=== PATIENT | male | born 1980 | race Caucasian/White ===

== ENCOUNTER 2018-10-08 14:23 | Inpatient (IN) | payer OTHER ==
[~2018-10-08] VITALS: Ht 170.2 cm; Wt 76.7 kg
--- OUTSIDE RECORDS SUMMARY | 2018-10-08 14:28 | XMS REPORT ---
Author Author [facility] Medical Staff Organization [facility] Address [address] [place] [address] Phone [phone] Summary purpose TRANSITION OF CARE AUTO GENERATION Chief Complaint and Reason for Visit Admit Diagnosis 1 CELLULITIS OF ARM Problem list No authorized problems tracked for continuity of care are available for this vis it. Encounters The following conditions tracked for encounter diagnoses were recorded for this visit: Finding or Diagnosis Status Certainty Chronicity Onset *CELLULITIS Active *LEUKOCYTOSIS Active Medications Discharge Medications Status Medication Directions Current Acetaminophen (TYLENOL) 325 mg: TABLET 650 MG oral Give PO Q4 Hours As Needed for PAIN/FEVER Current Bactrim DS 800 mg-160 mg tablet 1 tab oral 3 xDaily 12-28-20 Current Clonazepam (KLONOPIN) 0.5 mg: TABLET 1 tab(s) oral Twice a day as needed for ANXIETY Current Cyclobenzaprine (FLEXERIL): TABLET 10 MG oral Give PO 3 xDaily As Needed for MUSCLE SPASM Current doxycycline hyclate 100 mg tablet 1 tab oral Twice a day Current IBUPROFEN 800 mg: TABLET 800 MG oral Give PO Q8 Hours As Needed for PAIN/FEVER Current Levetiracetam (KEPPRA): TABLET 1000 MG oral Give PO Twice a day Current Percocet 10 mg-325 mg tablet 1 tab oral Q4 Hours As Needed for Pain Stopped Flexeril 10 mg tablet 1 tab(s) oral 3 xDaily As Needed Stopped hydrocodone 10 mg-acetaminophen 325 mg tablet 1 tab(s) oral Q6 Hours As Needed Stopped Keppra 1,000 mg tablet 2.5 tab(s) oral Twice a day Stopped Klonopin 2 mg tablet 1 tab(s) oral 3 xDaily 12-28-20 Allergies, adverse reactions, alerts Allergen Category Ingredient Status Reaction Severity Onset No known drug allergies No known drug allergies No known drug allergies Confirmed or Verified Immunizations No immunizations recorded for this patient visit Relevant diagnostic tests and/or laboratory data RESULTS [id number]:24:00 Discharge Summary DISCHARGE SUMMARY DISCHARGE DIAGNOSES: 1. Right upper extremity cellulitis with suspected methicillin-resistant Staphylococcus aureus. 2. Possible bacteremia with gram-positive cocci on 1 blood culture. 3. Leukocytosis. 4. Seizure disorder. CONSULTATIONS: None. PROCEDURES: None. HISTORY OF PRESENT ILLNESS:This is a 33-year-old white male patient of Cally Forbes who presented to the emergency room with right arm infection of 5 days' duration. Symptoms had significantly increased in the day or 2 prior. In addition, he developed fever. The patient underwent incision and drainage in the emergency room. He was subsequently admitted and placed on intravenousvancomycin. Patient's fever subsided to low grade temperatures only at time of discharge. Pain significantly improved. Drainage subsided quite a bit as well. No wound cultures available at the time of discharge. However, he did have 1 of 2 blood cultures return with gram-positive cocci. The patient has been up ambulating about the room and taking a regular diet without any difficulties. PHYSICAL EXAMINATION:GENERAL:The patient is in no acute distress, alert, and oriented and conversing freely. VITAL SIGNS:Temperature 100.1, pulse 98, blood pressure 107/65, respirations 20, oxygen saturation 100%.EXTREMITIES:Right upper extremity significant decrease in erythema with a central area of erythema and induration measuring approximately 3 to 4 cm in diameter. Minimal drainage from central site. LABORATORY/X-RAY/EKG DATA: Laboratory on discharge shows CBC with white blood cells 14.5 from a previous of 30,000, hemoglobin 10.9, platelets 234,000. BMP is within normal limits, with a BUN of 11 and creatinine of 0.85. DISCHARGE INSTRUCTIONS: DISPOSITION: The patient discharged in stable condition without diet or activity restrictions. He is to follow up with Cally Gordillo in 1 week. DISCHARGE MEDICATIONS:Bactrim DS twice 3 times daily for 7 days. Doxycycline twice daily for 100 mg twice daily for 7 days. Percocet 10 mg every 4 hours as needed for pain, quantity 40. Keppra 1000 mg twice daily. Clonazepam 0.5 mg twice daily as needed for anxiety. Brian Taylor MD MD/cc 09/04/2014 08:24:06/09/04/2014 22:39:43 Clinic Code: cc: <START [facility] [address] [place] [address] <END HEADER> Blood Cultures [id number]:10:00 Blood Culture Plate Date and Time 09/02/2014 17:10 SourceBLOOD CULTURE REPORT VIRIDANS STREP.ISOLATED. Sensitivity to follow Release Date/Time: 09/05/2014 07:52 GRAM STAIN Gram Positive Cocci Release Date/Time: 09/03/2014 19:21 ORGID #2:STREPTOCOCCUS VIRIDANS, GROUP Release Date/Time: 09/06/2014 07:24 Sensitivity #2: STRVIR AMPICILLIN 0.25S AZITHROMYCIN 1 I CEFTRIAXONE<=0.25 S CLINDAMYCIN<=0.06 S CEFOTAXIME <=0.25 S CEFEPIME <=0.25 S ERYTHROMYCIN > 0.5 R LEVOFLOXACIN 0.5 S MEROPENEM<=0.06 S PENICILLIN 0.06S TRIMETHSULFA 05/04 TETRACYCLINE <=0.5S VANCOMYCIN 0.5 S [id number]:20:00 Blood Culture Plate Date and Time 09/02/2014 16:22 SourceBLOOD CULTURE REPORT NoGrowth at 1 day. Unless otherwise notified. Final report in 5 Days. Release Date/Time: 09/04/2014 07:59 CULTURE REPORT VIRIDANS STREP.GROUP ISOLATED. SEE SENSITIVITY RESULT ON THE OTHER BLOOD CULTURE REPORT. Release Date/Time: 09/06/2014 07:30 GRAM STAIN Gram Positive Cocci Release Date/Time: 09/04/2014 13:14 ORGID #1:VIRIDANS STREPTOCOCCUS GROUP Release Date/Time: 09/06/2014 07:33 ISOLATED.SEE SUSCEPTIBILITY RESULT ON THE OTHER BLOOD CULTURE REPORT. Therapeutic Drug Monitoring [id number]:35:00 Result Normal Range Units Vancomycin Trough 12.4 10-22 ug/ml Routine Cultures [id number]:32:00 Wound Culture Plate Date and Time 09/02/2014 23:32 SourceFOREARM CULTURE REPORT Large Amount Staphylococcus Aureus. Sensitivity to follow Release Date/Time: 09/04/2014 08:29 ORGID #1:Large Amount STAPHYLOCOCCUS AUREUS Release Date/Time: 09/05/2014 07:21 Sensitivity #1: STAAUR AMPICILLIN > 8 R AMOX CLAV<=4/2 S CLINDAMYCIN<=0.5S CEFAZOLIN<=4S CIPROFLOXACIN<=1S GENTAMICIN <=4S AMPICILLIN SULBACTAM <=8/4 S LEVOFLOXACIN <=1S LINEZOLID4 S MOXIFLOXACIN <=0.5S OXACILLIN0.5 S PENICILLIN > 8 R RIFAMPIN <=1S TRIMETHSULFA <=0.5/9.5 S TETRACYCLINE <=4S VANCOMYCIN 2 S Chemistry :18:00 Result Normal Range Units Sodium 140 134-145 mEq/l Potassium 4.4 3.5-5.1 mEq/l Chloride 104 98-107 mEq/l CO2 26.4 22-28 mEq/l Glucose 86 70-105 mg/dl BUN 11 7-18 mg/dl Creatinine 0.85 0.6-1.3 mg/dl Calcium 8.4 8.4-10.2 mg/dl Osmolality L 278.1 280-300 mOsm/L Anion GAP 9.6 8-16 BUN/Creatinine Ratio 12.9 10-20 Estimated GFR 103 >=60 mL/min/1.7 [id number]:40:00 Result Normal Range Units Sodium 138 134-145 mEq/l Potassium 4.7 3.5-5.1 mEq/l Chloride 102 98-107 mEq/l CO2 H 29.8 22-28 mEq/l Glucose 96 70-105 mg/dl BUN 10 7-18 mg/dl Creatinine 0.85 0.6-1.3 mg/dl Calcium 8.6 8.4-10.2 mg/dl Osmolality L 274.6 280-300 mOsm/L Anion GAP L 6.2 8-16 BUN/Creatinine Ratio 11.8 10-20 Estimated GFR 103 >=60 mL/min/1.7 :20:00 Result Normal Range Units Sodium 138 134-145 mEq/l Potassium 4.2 3.5-5.1 mEq/l Chloride 99 98-107 mEq/l CO2 27.1 22-28 mEq/l Glucose L 58 70-105 mg/dl BUN 11 7-18 mg/dl Creatinine 1.02 0.6-1.3 mg/dl Calcium 9.1 8.4-10.2 mg/dl TP - Total Protein 8.1 6.0-8.3 g/dl Albumin L 3.2 3.5-5 g/dl Bilirubin - Total 0.4 0.1-1.0 mg/dl AST L 9 10-42 IU/L ALT 19 12-65 IU/L ALP H 144 39-107 IU/L Osmolality L 272.8 280-300 mOsm/L Albumin/Globulin Ratio 0.7 0-8 Anion GAP 11.9 8-16 BUN/Creatinine Ratio 10.8 10-20 Estimated GFR 83 >=60 mL/min/1.7 Hematology :18:00 Result Normal Range Units WBC H 14.5 4.8-10.8 103/uL RBC L 4.1 4.7-6.1 106/uL HGB L 10.9 13.0-18.0 g/dl HCT L 34.6 41.9-52.0 % MCV 83.8 80-94 FL MCH L 26.4 27-31 pg MCHC L 31.5 33-37 g/dl RDW 14.9 11.5-15.5 % PLT 234 130-400 103/uL MPV 10.4 7.3-10.4 FL Segs H 77.0 40-70 % Lymphs L 15.0 20-40 % [place] 5.0 0-10 % Eos 2.0 0-7 % Baso 1.0 0-2 % :40:00 Result Normal Range Units WBC H@ 30.2 4.8-10.8 103/uL RBC L 4.4 4.7-6.1 106/uL HGB L 11.7 13.0-18.0 g/dl HCT L 36.1 41.9-52.0 % MCV 81.5 80-94 FL MCH L 26.4 27-31 pg MCHC L 32.4 33-37 g/dl RDW 15.1 11.5-15.5 % PLT 231 130-400 103/uL MPV 10.1 7.3-10.4 FL Segs H 75.0 40-70 % Bands H 9.0 0-5 % Lymphs L 6.0 20-40 % [place] 8.0 0-10 % Eos 1.0 0-7 % [place] 1.0 0-5 % :20:00 Result Normal Range Units WBC H 19.8 4.8-10.8 103/uL RBC 4.9 4.7-6.1 106/uL HGB 13.2 13.0-18.0 g/dl HCT L 40.2 41.9-52.0 % MCV 81.5 80-94 FL MCH L 26.8 27-31 pg MCHC L 32.8 33-37 g/dl RDW 15.3 11.5-15.5 % PLT 310 130-400 103/uL MPV 10.1 7.3-10.4 FL Segs H 82.0 40-70 % Bands H 13.0 0-5 % Lymphs L 2.0 20-40 % [place] 2.0 0-10 % Eos 1.0 0-7 % Radiology Results :18:00 Result Normal Range Units MPV 10.4 7.3-10.4 FL :40:00 Result Normal Range Units MPV 10.1 7.3-10.4 FL :20:00 Result Normal Range Units MPV 10.1 7.3-10.4 FL History of procedures No procedures recorded for this patient visit. Functional status Functional Status Finding Observation Time Hearing Prob Loc none :00 Vision Problems no :00 Ambulation Asst Dev none :00 Range of Motion full 85-62-507426:11 Muscle Strength RUE 5 ROM full resist 29-26-149139:11 Muscle Strength RLE 5 ROM full resist 85-42-790308:11 Muscle Strength LUE 5 ROM full resist 73-66-030736:11 Muscle Strength LLE 5 ROM full resist 02-54-476926:11 Transfers independent 15-94-785308:11 Ambulation in room 44-98-959692:11 Balance steady 89-19-934891:11 Bathing Assistance none :00 Eating Assistance none :00 Dressing Assistance none :00 Toileting Assistance none :00 Transfer Assistance none :00 Decline Slf Care/Mob no :00 Phys Cond Stable yes :00 Nutrition normal 95-08-801243:11 Diet regular 91-92-233906:11 Oral Cavity moist and intact 00-86-256348:11 Teeth intact 80-37-397105:11 Dental Hygiene good :11 Abdomen Appearance flat 86-20-357707:11 Abdomen soft :11 Bowel Sounds present :11 NG Tube no :11 Feeding Tube none :11 Pacheco no :11 Cont Bladder Irr no :11 Ostomy no :11 Stool other (specify) Comment: None noted at thist ld 52-81-639129:11 Urination normal Comment: Per patient report :11 Quality sym/unlabored : Cough non-productive :11 Secretions no :11 Breath Sounds RUL clear :11 Breath Sounds RML clear :11 Breath Sounds RLL clear :11 Breath Sounds LAZARO clear :11 Breath Sounds LLL clear 57-75-525112:11 Airway natural :11 Chest Tube no :11 Oxygen no :58 C-PAP no 03-94-992820:11 BI-PAP no :11 New Infection other (specify) Comment: Cellulitis : Temp >100.4 no :11 Temp <96.8 no :11 Chills with rigors no :11 HR > 90bpm no :11 Respirations > 20 no :11 Systolic <90 no :11 headache stiff neck no :11 WBC > 02177 yes Comment: 14.5 :11 WBC < 4000 no :11 Rapid Resp no :11 IV Site Location Left forearm :00 IV Type peripheral :00 IV Site Information discontinued :00 IV Site Start Attmpt 2 times 72-65-292254:30 IV Site Byron 20 :13 IV Site Appearance WNL :13 IV Site Color clear :13 IV Site Patent yes :13 Dressing Changed no (explain) Comment: dressing remains clean, dry and itnact at this time :13 Dressing Type occlusive :13 Nursing Note Pt reports he is not taking his antibiotics as well as he should be, he reports today has been hectic and he missed some, I educated him on the importance of taking his antibiotics as ordered to ensure he does not end up back in the hospital. Pt verbalizes understanding and reports that he will take them as ordered. Pt has a f/u on 09/10/14 @ [address] Taylor that he reports he was not aware of. No questions at this time. :34 Cognitive Status Finding Observation Time Oriented To Date 5 Yes : Oriented To Place 5 Yes : Name 3 Objects 3 Yes : Name Object in Rm 2 Yes : Recall 3 Objects 3 Yes :00 Repeats a Phrase 1 Yes :00 Follows Verbal Direc 3 Yes :00 Follows Written Dire 1 Yes :00 Write a Sentance 1 Yes : Draw an Object 1 Yes :00 Mini Mental Total 25 points :00 Learning Ability comprehends well :10 Neurological no :10 Psychological yes :10 Physical no :10 Hearing no :10 Ruling Technician Needed no :10 Sign Language no :10 Emotional no :10 Vision no :10 Laguage no :10 Financial yes :10 Vital signs Type Value Date Respiration Rate 20breaths per minute :58 Pulse 91beats per minute :58 Oxygen Saturation 98% :58 BP Systolic 104mmHg 64-22-162190:58 BP Diastolic 63mmHg 78-36-864452:58 Temperature 99.2F 05-62-697244:58 Height 68inches 21-26-346395:26 Weight 166.2LB 35-81-680315:26 Social history Type Value Smoking Status CURRENT EVERY DAY SMOKER Treatment Plan No treatment plan text is available for this visit. Hospital discharge instructions Discharge Date/Time 09-04-2014 12:05 Accompanied By Care Car/Self Dismissal Condition fair Disposition on DC home Valuables yes Valuable Type billfold/purse Comment: cell phone, clothing and shoes from home Valuables Returned T patient DC Inst/Educ Give yes Exit Care Educ Given yes Med/Side Effects Rev yes DC Med Rec Rev yes Immun Indicated no PNE Vac Refused Flu Vac 2013 Tetanus Vac unsure Diet Explained yes Follow up appt already scheduled Follow Up Appt D/T 09-10-2014 11:20
--- OUTSIDE RECORDS SUMMARY | 2018-10-08 14:29 | XMS REPORT ---
Author Author TRINIDAD CAMARENA Organization Unknown Address [address] [place] [address] [address] [place] [address] Care Team Providers Care Director Digital Sales Name Role Phone TRINIDAD CAMARENA Unavailable Problems Problem SNOMED Onset Date Resolved Date Status N/A N/A N/A N/A N/A Allergies, Adverse Reactions NA Care Plan Date Time Service Provider Location 09:00:00 am PSYCHOTHERAPY, 38-52 MINUTES BEN ALEGRIA [address] 08:30:00 am NEW PATIENT E&M LEVEL III CALLI PATRICK [address] Medications NA Lab Results NA Encounters Date Time Service Code Provider 12:04:00 pm TRINIDAD CAMARENA Family History Functional Status NA Immunizations NA Vital Signs NA Social History NA Hospital Discharge Instructions NA Instructions * Not Applicable Procedures NA Purpose Electronic Copy
--- OUTSIDE RECORDS SUMMARY | 2018-10-08 14:29 | XMS REPORT | Clinical Summary ---
Author Author Admin, CHRISTENE Organization [facility] Address Unknown Phone Unavailable Allergies, Adverse Reactions, Alerts Allergy Name Reaction Description Start Date Severity Status Provider Allergies Unknown Conditions or Problems Problem Name Problem Code Onset Date Status Entry Date Provider Comment Standard Description Annotate Health screening V70.0 Active Brian Taylor MD Routine general medical examination at a health care facility Medication List Medication Instructions Start Date Stop Date Generic Name NDC Status Provider Patient Instruction Drug Treatment Unknown - unknown Diagnostic Results Date Name Value Unit Range Description Chart Maintenance: Outside labs entered on flowsheet - Chemistry sodium, serum 140 mmol/L potassium, serum 4.4 mmol/L blood glucose 86 mg/dL creatinine, serum 0.85 mg/dL Chart Maintenance: Outside labs entered on flowsheet - Hematology leukocyte count, blood 14.5 10*3/mm3 hemoglobin, blood 10.9 g/dL platelet count 234 10*3/mm3
--- OUTSIDE RECORDS SUMMARY | 2018-10-08 14:29 | XMS REPORT ---
Author Author [facility] Medical Staff Organization [facility] Address [address] [place] [id number] Phone [phone] Summary purpose TRANSITION OF CARE AUTO GENERATION Chief Complaint and Reason for Visit Admit Diagnosis 1 RT UPPER EXTREMITY CELLULITIS Problem list No authorized problems tracked for [...] Relevant diagnostic tests and/or laboratory data RESULTS 26-01-784491:24:00 Discharge Summary DISCHARGE SUMMARY DISCHARGE DIAGNOSES: 1. [...] as needed for anxiety. Brian Taylor MD MD/brittani 09/04/2014 08:24:06/09/04/2014 22:39:43 Clinic Code: cc: <START [facility] [address] [facility] [address] <END HEADER> Blood Cultures 31-00-674777:10:00 Blood Culture Plate Date and Time 09/02/2014 17:10 SourceBLOOD GRAM STAIN Gram Positive Cocci Release Date/Time: 09/03/2014 19:21 [id number]:20:00 Blood Culture Plate Date and Time 09/02/2014 16:22 SourceBLOOD CULTURE REPORT NoGrowth at 1 day. Unless otherwise notified. Final report in 5 Days. Release Date/Time: 09/04/2014 07:59 GRAM STAIN Gram Positive Cocci Release Date/Time: 09/04/2014 13:14 Therapeutic Drug Monitoring 26-00-527279:35:00 Result Normal Range Units Vancomycin Trough 12.4 10-22 ug/ml Routine Cultures [id number]:32:00 Wound Culture Plate Date and Time 09/02/2014 23:32 SourceFOREARM CULTURE REPORT Large Amount Staphylococcus Aureus. Sensitivity to follow Release Date/Time: 09/04/2014 08:29 Chemistry [id number]:18:00 Result Normal Range Units Sodium 140 134-145 mEq/l Potassium 4.4 3.5-5.1 mEq/l Chloride 104 98-107 mEq/l CO2 26.4 22-28 mEq/l Glucose 86 70-105 mg/dl BUN 11 7-18 mg/dl Creatinine 0.85 0.6-1.3 mg/dl Calcium 8.4 8.4-10.2 mg/dl Osmolality L 278.1 280-300 mOsm/L Anion GAP 9.6 8-16 BUN/Creatinine Ratio 12.9 10-20 Estimated GFR 103 >=60 mL/min/1.7 03-49-023433:40:00 Result Normal Range Units Sodium 138 134-145 mEq/l Potassium 4.7 3.5-5.1 mEq/l Chloride 102 98-107 mEq/l CO2 H 29.8 22-28 mEq/l Glucose 96 70-105 mg/dl BUN 10 7-18 mg/dl Creatinine 0.85 0.6-1.3 mg/dl Calcium 8.6 8.4-10.2 mg/dl Osmolality L 274.6 280-300 mOsm/L Anion GAP L 6.2 8-16 BUN/Creatinine Ratio 11.8 10-20 Estimated GFR 103 >=60 mL/min/1.7 84-05-220004:20:00 Result Normal Range Units Sodium 138 134-145 [...] 40-70 % Lymphs L 15.0 20-40 % [place] 5.0 0-10 % Eos 2.0 0-7 % [...] 0-5 % Lymphs L 6.0 20-40 % [place] 8.0 0-10 % Eos 1.0 0-7 % [...] 0-5 % Lymphs L 2.0 20-40 % [place] 2.0 0-10 % Eos 1.0 0-7 % [...] Dev none :00 Range of Motion full :11 Muscle Strength RUE 5 ROM full resist 14-57-843475:11 Muscle Strength RLE 5 ROM full resist 45-16-291387:11 Muscle Strength LUE 5 ROM full resist 35-09-664313:11 Muscle Strength LLE 5 ROM full resist 71-89-322417:11 Transfers independent :11 Ambulation in room :11 Balance steady 99-58-900153:11 Bathing Assistance none :00 Eating Assistance none : Dressing Assistance none : Toileting Assistance none :00 Transfer Assistance none : Decline Slf Care/Mob no :00 Phys Cond Stable yes : Nutrition normal :11 Diet regular :11 Oral Cavity moist and intact :11 Teeth intact :11 Dental Hygiene good :11 Abdomen Appearance flat :11 Abdomen soft :11 Bowel Sounds present :11 NG Tube no :11 Feeding Tube none :11 Pacheco no :11 Cont Bladder Irr no :11 Ostomy no :11 Stool other (specify) Comment: None noted at thist ld 40-24-246721:11 Urination normal Comment: Per patient report :11 Quality sym/unlabored :11 Cough non-productive :11 Secretions no :11 Breath Sounds RUL clear :11 Breath Sounds RML clear :11 Breath Sounds RLL clear :11 Breath Sounds LAZARO clear :11 Breath Sounds LLL clear :11 Airway natural :11 Chest Tube no :11 Oxygen no 37-75-153567:58 C-PAP no :11 BI-PAP no :11 New Infection other (specify) Comment: Cellulitis :11 Temp >100.4 no :11 Temp <96.8 no :11 Chills with rigors no 64-12-690152:11 HR > 90bpm no :11 Respirations > 20 no :11 Systolic <90 no :11 headache stiff neck no :11 WBC > 25005 yes Comment: 14.5 :11 WBC < 4000 no :11 Rapid Resp no :11 IV Site Location Left forearm :00 IV Type peripheral :00 IV Site Information discontinued : IV Site Start Attmpt 2 times 62-49-801134:30 IV Site Byron 20 :13 IV Site Appearance WNL : IV Site Color clear : IV Site Patent yes : Dressing Changed no (explain) Comment: dressing remains clean, dry and itnact at this time : Dressing Type occlusive :13 Nursing Note Patient discharged to home at this time. The patient is receiving a ride from the Care power truck driver but refused to wait in his room. The patient insisted on waiting outside near the ER doors. JR, the care carpenter foreman, was informed of this. The patient's vital signs were stable on discharge and his IV Site was removed. He denied further questions or concerns regarding his discharge instructions and home medications. :09 Cognitive Status Finding Observation Time Oriented To Date 5 Yes : Oriented To Place 5 Yes : Name 3 Objects 3 Yes :00 Name Object in Rm 2 Yes : Recall 3 Objects 3 Yes :00 Repeats a Phrase 1 Yes : Follows Verbal Direc 3 Yes : Follows Written Dire 1 Yes : Write a Sentance 1 Yes : Draw an Object 1 Yes :00 Mini Mental Total 25 points : Learning Ability comprehends well :10 Neurological no 75-20-307299:10 Psychological yes :10 Physical no :10 Hearing no :10 Marketing Assistant Retail Division Needed no :10 Sign Language no :10 Emotional no :10 Vision no :10 Laguage no :10 Financial yes :10 Vital signs Type Value Date Respiration Rate 20breaths per minute : Pulse 91beats per minute :58 Oxygen Saturation 98% :58 BP Systolic 104mmHg :58 BP Diastolic 63mmHg :58 Temperature 99.2F :58 Height 68inches :26 Weight 166.2LB 94-80-341440:26 Social history Type Value Smoking Status CURRENT [...]
--- OUTSIDE RECORDS SUMMARY | 2018-10-08 14:29 | XMS REPORT ---
Author Author BEN ALEGRIA Organization Unknown Address [address] [place] [address] Care Team Providers Care Dermatology Specialist Name Role Phone TRINIDAD CAMARENA Unavailable BEN ALEGRIA Unavailable Problems Problem SNOMED Onset Date Resolved Date Status Mental health problem [id number] Active Review of medication [id number] Active Allergies, Adverse Reactions NA Care Plan Goal Instructions Client will be functioning more independently with supports and have a life worth living. Engage with treatment team to build rapport. Learn and practice coping skills to reduce symptoms and improve functioning. The following Services will be utilized 1 - 3 times until goal is reached: Improve and maintain functioning through medical psychiatric services. ADULT THERAPY SERVICE BUNDLE - Provide the following services 1-3 times each week: + 83057 Psychotherapy, 16-37 Minutes + 97715 Psychotherapy, 38-52 Minutes + 17758 Psychotherapy, 53+ Minutes + 77104 Psychotherapy for Crisis 31-74 Minutes + 36306 Each Add'l 30 Min Crisis Psychotherapy + 43066 Group Therapy + 79909 Case Conf w/Clt NN-Physician + [id number] Case Conf w/o Clt + Fam w/MD + [id number] Case Conf w/o Clt w/MD Improve and maintain functioning through medical psychiatric services. ADULT THERAPY SERVICE BUNDLE - Provide the following services 1-3 times each week: + 06953 Psychotherapy, 16-37 Minutes + 83250 Psychotherapy, 38-52 Minutes + 36343 Psychotherapy, 53+ Minutes + 07434 Psychotherapy for Crisis 31-74 Minutes + 04185 Each Add'l 30 Min Crisis Psychotherapy + 29858 Group Therapy + 00907 Case Conf w/Clt NN-Physician + 03822 Case Conf w/o Clt + Fam w/MD + 57734 Case Conf w/o Clt w/MD + [id number] Psychosocial Adult Group + [id number] TCM - Targeted Case Management Medications NA Lab Results NA Encounters Date Time Service Code Provider 12:04:00 pm BEN ALEGRIA 03:56:00 pm BEN ALEGRIA Family History Functional Status NA Immunizations NA Vital Signs NA Social History NA Hospital Discharge Instructions NA Instructions * Not Applicable Procedures NA Purpose Electronic Copy
--- OUTSIDE RECORDS SUMMARY | 2018-10-08 14:29 | XMS REPORT | Continuity of Care Document ---
Author Organization Unknown Address Unknown Allergies Active Description Code Type Severity Reaction Onset Reported/Identified Relationship to Patient Clinical Status Yes No known allergies Drug N/A N/A Yes No known drug allergies [id number] ND N/A N/A Confirmed or Verified Yes Tylenol with Codeine #3 Drug N/A N/A Yes NO NAME AVAILABLE 01723 DRUG N/A N/A Medications There is no data. Problems There is no data. Procedures There is no data. Results Test Result Range CBC WITH DIFF - 08/18/13 00:00 BANDS 7.0 % 0-5 HCT 34.8 % 41.9-52.0 HGB 11.7 G/DL 13.0-18.0 LYMPH 6.0 % 20-40 MCH 26.1 PG 27-31 MCHC 33.6 G/DL 33-37 MCV 77.5 FL 80-94 MONO 8.0 % 0-10 MPV 11.0 FL 7.3-10.4 PLT 212 10^3u 130-400 RBC 4.5 10^6u 4.7-6.1 RDW 15.5 % 11.5-15.5 WBC 12.3 10^3u 4.8-10.8 SEGS 79.0 % 40-70 CMP - 08/18/13 00:00 ALB 3.2 G/DL 3.5-5 ALP 227 IU/L 50-136 ALT 25 IU/L 12-65 AST 14 IU/L 10-42 BCR 12.4 10-20 BUN 13 MG/DL 7-18 CA 8.9 MG/DL 8.4-10.2 CL 93 MEQ/L 98-107 CO2 22.9 MEQ/L 22-28 CREA 1.05 MG/DL 0.6-1.3 EGFR 81 eGFR >=60 GLU 106 MG/DL 70-105 K 3.7 MEQ/L 3.5-5.1 NA 129 MEQ/L 134-145 OSMSC 259.5 MOSML 280-300 TBIL 0.5 MG/DL 0.1-1.0 TP 7.6 G/DL 6.0-8.3 Albumin/Globulin Ratio 0.7 0-8 Anion Gap 13.1 8-16 RAPID MYCOPLASMA - 08/18/13 00:00 RAPMYCO N Negative LACTIC ACID - 08/18/13 00:00 LA 1.2 MMOLL 0.4-2.0 UA - 08/19/13 00:00 PH 5.5 4.5-8.0 SG 1.007 1.003-1.035 UABILI NEGATIVE UABLD NEGATIVE UACOLOR YEL UAGLU NEGATIVE UAKET NEGATIVE UALEUK NEGATIVE UANIT NEGATIVE UAURO 0.2 0-0.2 CLARITY CL PROTEIN NEGATIVE UA WBC NOWBC UA RBC NORBC SQUAMOUS EPITHELIAL CELLS FEW BACTERIA RARE CMP - 08/19/13 00:00 ALB 2.6 G/DL 3.5-5 ALP 263 IU/L 50-136 ALT 24 IU/L 12-65 AST 23 IU/L 10-42 BCR 13.4 10-20 BUN 15 MG/DL 7-18 CA 8.5 MG/DL 8.4-10.2 CL 95 MEQ/L 98-107 CO2 24.8 MEQ/L 22-28 CREA 1.12 MG/DL 0.6-1.3 EGFR 75 eGFR >=60 GLU 113 MG/DL 70-105 K 3.8 MEQ/L 3.5-5.1 NA 130 MEQ/L 134-145 OSMSC 262.4 MOSML 280-300 TBIL 0.5 MG/DL 0.1-1.0 TP 6.3 G/DL 6.0-8.3 Albumin/Globulin Ratio 0.7 0-8 Anion Gap 10.2 8-16 CBC WITH DIFF - 08/19/13 00:00 BANDS 2.0 % 0-5 HCT 30.5 % 41.9-52.0 HGB 10.4 G/DL 13.0-18.0 LYMPH 4.0 % 20-40 MCH 26.7 PG 27-31 MCHC 34.1 G/DL 33-37 MCV 78.4 FL 80-94 MONO 6.0 % 0-10 MPV 11.1 FL 7.3-10.4 PLT 199 10^3u 130-400 RBC 3.9 10^6u 4.7-6.1 RDW 15.6 % 11.5-15.5 WBC 15.2 10^3u 4.8-10.8 SEGS 88.0 % 40-70 CMP - 08/20/13 00:00 ALB 2.1 G/DL 3.5-5 ALP 337 IU/L 50-136 ALT 22 IU/L 12-65 AST 16 IU/L 10-42 BCR 12.6 10-20 BUN 11 MG/DL 7-18 CA 8.5 MG/DL 8.4-10.2 CL 102 MEQ/L 98-107 CO2 22.9 MEQ/L 22-28 CREA 0.87 MG/DL 0.6-1.3 EGFR 100 eGFR >=60 GLU 120 MG/DL 70-105 K 3.7 MEQ/L 3.5-5.1 NA 135 MEQ/L 134-145 OSMSC 270.7 MOSML 280-300 TBIL 0.5 MG/DL 0.1-1.0 TP 5.7 G/DL 6.0-8.3 Albumin/Globulin Ratio 0.6 0-8 Anion Gap 10.1 8-16 CBC WITH DIFF - 08/20/13 00:00 BANDS 1.0 % 0-5 BASO 1.0 % 0-2 HCT 30.8 % 41.9-52.0 HGB 10.2 G/DL 13.0-18.0 LYMPH 7.0 % 20-40 MCH 26.1 PG 27-31 MCHC 33.1 G/DL 33-37 MCV 78.8 FL 80-94 MONO 8.0 % 0-10 MPV 10.4 FL 7.3-10.4 PLT 183 10^3u 130-400 RBC 3.9 10^6u 4.7-6.1 RDW 16.0 % 11.5-15.5 WBC 13.4 10^3u 4.8-10.8 SEGS 83.0 % 40-70 CMP - 08/22/13 00:00 ALB 1.8 G/DL 3.5-5 ALP 318 IU/L 50-136 ALT 25 IU/L 12-65 AST 17 IU/L 10-42 BCR 10.0 10-20 BUN 9 MG/DL 7-18 CA 8.2 MG/DL 8.4-10.2 CL 104 MEQ/L 98-107 CO2 26.2 MEQ/L 22-28 CREA 0.90 MG/DL 0.6-1.3 EGFR 97 eGFR >=60 GLU 148 MG/DL 70-105 K 3.8 MEQ/L 3.5-5.1 NA 139 MEQ/L 134-145 OSMSC 279.0 MOSML 280-300 TBIL 0.2 MG/DL 0.1-1.0 TP 5.5 G/DL 6.0-8.3 Albumin/Globulin Ratio 0.5 0-8 Anion Gap 8.8 8-16 CBC WITH DIFF - 08/24/13 00:00 EOS 1.0 % 0-7 HCT 29.1 % 41.9-52.0 HGB 9.3 G/DL 13.0-18.0 LYMPH 23.0 % 20-40 MCH 26.2 PG 27-31 MCHC 32.0 G/DL 33-37 MCV 82.0 FL 80-94 MONO 18.0 % 0-10 MPV 9.9 FL 7.3-10.4 PLT 288 10^3u 130-400 RBC 3.6 10^6u 4.7-6.1 RDW 17.4 % 11.5-15.5 WBC 16.1 10^3u 4.8-10.8 SEGS 58.0 % 40-70 CMP - 08/24/13 00:00 ALB 1.9 G/DL 3.5-5 ALP 274 IU/L 50-136 ALT 41 IU/L 12-65 AST 20 IU/L 10-42 BCR 17.5 10-20 BUN 17 MG/DL 7-18 CA 8.7 MG/DL 8.4-10.2 CL 108 MEQ/L 98-107 CO2 28.1 MEQ/L 22-28 CREA 0.97 MG/DL 0.6-1.3 EGFR 89 eGFR >=60 GLU 94 MG/DL 70-105 K 4.7 MEQ/L 3.5-5.1 NA 144 MEQ/L 134-145 OSMSC 288.1 MOSML 280-300 TBIL 0.2 MG/DL 0.1-1.0 TP 5.5 G/DL 6.0-8.3 Albumin/Globulin Ratio 0.5 0-8 Anion Gap 7.9 8-16 CBC - 08/25/13 00:00 HCT 30.5 % 41.9-52.0 HGB 9.7 G/DL 13.0-18.0 MCH 26.2 PG 27-31 MCHC 31.8 G/DL 33-37 MCV 82.4 FL 80-94 MPV 10.0 FL 7.3-10.4 PLT 344 10^3u 130-400 RBC 3.7 10^6u 4.7-6.1 RDW 17.0 % 11.5-15.5 WBC 16.7 10^3u 4.8-10.8 BMP - 08/25/13 00:00 BCR 16.0 10-20 BUN 16 MG/DL 7-18 CA 8.7 MG/DL 8.4-10.2 CL 106 MEQ/L 98-107 CO2 31.5 MEQ/L 22-28 CREA 1.00 MG/DL 0.6-1.3 EGFR 86 eGFR >=60 GLU 87 MG/DL 70-105 K 4.6 MEQ/L 3.5-5.1 NA 145 MEQ/L 134-145 OSMSC 289.2 MOSML 280-300 Anion Gap 7.5 8-16 CRP - 08/25/13 00:00 CRP 3.3 MG/DL 0-1 SEDR - 08/25/13 00:00 SEDR 31 0-15 ANAEROBIC CULT - 08/25/13 00:00 ANAEROBIC CULTURE SEE NOTE DRUG SCREEN IN HOUSE - 08/26/13 00:00 MBAR N Negative MBENZO P Negative MCOCN N Negative MMAMP N Negative MMTD N Negative MOPIAT N Negative MPCP N Negative MTCA N Negative MTHC P Negative AMPHETAMINE N Negative CBC WITH DIFF - 08/27/13 00:00 BANDS 1.0 % 0-5 HCT 34.0 % 41.9-52.0 HGB 11.1 G/DL 13.0-18.0 LYMPH 24.0 % 20-40 MCH 26.4 PG 27-31 MCHC 32.6 G/DL 33-37 MCV 80.8 FL 80-94 MONO 14.0 % 0-10 MPV 9.5 FL 7.3-10.4 PLT 353 10^3u 130-400 RBC 4.2 10^6u 4.7-6.1 RDW 17.8 % 11.5-15.5 WBC 16.6 10^3u 4.8-10.8 SEGS 61.0 % 40-70 ANISO 1+ MACRO OCC MICRO 1+ BMP - 08/27/13 00:00 BCR 14.3 10-20 BUN 13 MG/DL 7-18 CA 8.6 MG/DL 8.4-10.2 CL 99 MEQ/L 98-107 CO2 35.3 MEQ/L 22-28 CREA 0.91 MG/DL 0.6-1.3 EGFR 95 eGFR >=60 GLU 80 MG/DL 70-105 K 5.1 MEQ/L 3.5-5.1 NA 138 MEQ/L 134-145 OSMSC 274.8 MOSML 280-300 Anion Gap 3.7 8-16 CRP - 08/27/13 00:00 CRP 7.3 MG/DL 0-1 SEDR - 08/27/13 00:00 SEDR 15 0-15 CRP - 08/28/13 00:00 CRP 5.6 MG/DL 0-1 SEDR - 08/28/13 00:00 SEDR 25 0-15 CBC WITH DIFF - 09/02/14 00:00 BANDS 13.0 % 0-5 EOS 1.0 % 0-7 HCT 40.2 % 41.9-52.0 HGB 13.2 G/DL 13.0-18.0 LYMPH 2.0 % 20-40 MCH 26.8 PG 27-31 MCHC 32.8 G/DL 33-37 MCV 81.5 FL 80-94 MONO 2.0 % 0-10 MPV 10.1 FL 7.3-10.4 PLT 310 10^3u 130-400 RBC 4.9 10^6u 4.7-6.1 RDW 15.3 % 11.5-15.5 WBC 19.8 10^3u 4.8-10.8 SEGS 82.0 % 40-70 CMP - 09/02/14 00:00 ALB 3.2 G/DL 3.5-5 ALP 144 IU/L 39-107 ALT 19 IU/L 12-65 AST 9 IU/L 10-42 BCR 10.8 10-20 BUN 11 MG/DL 7-18 CA 9.1 MG/DL 8.4-10.2 CL 99 MEQ/L 98-107 CO2 27.1 MEQ/L 22-28 CREA 1.02 MG/DL 0.6-1.3 EGFR 83 eGFR >=60 GLU 58 MG/DL 70-105 K 4.2 MEQ/L 3.5-5.1 NA 138 MEQ/L 134-145 OSMSC 272.8 MOSML 280-300 TBIL 0.4 MG/DL 0.1-1.0 TP 8.1 G/DL 6.0-8.3 Albumin/Globulin Ratio 0.7 0-8 Anion Gap 11.9 8-16 CBC WITH DIFF - 09/03/14 00:00 BANDS 9.0 % 0-5 EOS 1.0 % 0-7 HCT 36.1 % 41.9-52.0 HGB 11.7 G/DL 13.0-18.0 LYMPH 6.0 % 20-40 MCH 26.4 PG 27-31 MCHC 32.4 G/DL 33-37 MCV 81.5 FL 80-94 MONO 8.0 % 0-10 MPV 10.1 FL 7.3-10.4 PLT 231 10^3u 130-400 RBC 4.4 10^6u 4.7-6.1 RDW 15.1 % 11.5-15.5 WBC 30.2 10^3u 4.8-10.8 SEGS 75.0 % 40-70 METAS 1.0 % 0-5 BMP - 09/03/14 00:00 BCR 11.8 10-20 BUN 10 MG/DL 7-18 CA 8.6 MG/DL 8.4-10.2 CL 102 MEQ/L 98-107 CO2 29.8 MEQ/L 22-28 CREA 0.85 MG/DL 0.6-1.3 EGFR 103 eGFR >=60 GLU 96 MG/DL 70-105 K 4.7 MEQ/L 3.5-5.1 NA 138 MEQ/L 134-145 OSMSC 274.6 MOSML 280-300 Anion Gap 6.2 8-16 VANCOT - 09/03/14 00:00 VANCOT 12.4 UG/ML 10-22 BMP - 09/04/14 00:00 BCR 12.9 10-20 BUN 11 MG/DL 7-18 CA 8.4 MG/DL 8.4-10.2 CL 104 MEQ/L 98-107 CO2 26.4 MEQ/L 22-28 CREA 0.85 MG/DL 0.6-1.3 EGFR 103 eGFR >=60 GLU 86 MG/DL 70-105 K 4.4 MEQ/L 3.5-5.1 NA 140 MEQ/L 134-145 OSMSC 278.1 MOSML 280-300 Anion Gap 9.6 8-16 CBC WITH DIFF - 09/04/14 00:00 BASO 1.0 % 0-2 EOS 2.0 % 0-7 HCT 34.6 % 41.9-52.0 HGB 10.9 G/DL 13.0-18.0 LYMPH 15.0 % 20-40 MCH 26.4 PG 27-31 MCHC 31.5 G/DL 33-37 MCV 83.8 FL 80-94 MONO 5.0 % 0-10 MPV 10.4 FL 7.3-10.4 PLT 234 10^3u 130-400 RBC 4.1 10^6u 4.7-6.1 RDW 14.9 % 11.5-15.5 WBC 14.5 10^3u 4.8-10.8 SEGS 77.0 % 40-70 Encounters ACCT No. Visit Date/Time Discharge Status Pt. Type Provider Facility Loc./Unit Complaint [id number] 11/29/2017 04:46:00 12/01/2017 11:35:00 DIS V ELHAM PHILLIPS [facility] OBS UTI, acute kidney injury, suicidal ideation, methamphetamine abuse [id number] 11/29/2017 04:46:00 11/29/2017 06:35:00 DIS Emergency RADHA TAM [facility] ED ED visit [id number] 09/02/2014 19:15:00 09/04/2014 12:05:00 DIS Inpatient HAYDEN KUHN W [facility] 2F [id number] 08/18/2013 14:37:00 08/28/2013 10:50:00 DIS Inpatient GERHARD PRATER [facility] 2F [id number] 03/15/2014 00:00:00 Document Registration [id number] 03/15/2013 00:00:00 Document Registration [id number] 05/15/2018 14:08:00 ACT Unknown
[2018-10-08] MEDS ORDERED: LACTATED RINGERS 1,000 ML IV ONE ×2 (14:31→15:11)
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
[2018-10-08] MEDS ORDERED: ACETAMINOPHEN 500 MG TAB (TYLENOL) PO PRN ×2 (14:45→18:15)
[2018-10-08] MEDS ORDERED: LEVETIRACETAM INJECTION 1,000 MG in NS (IVPB) 100 ML IV ONE (14:45)
[2018-10-08] MEDS ORDERED: CEFEPIME INJECTION 1,000 MG in WATER (STERILE) FOR INJECTION 10 ML IV ONE (14:45)
[2018-10-08] MEDS ORDERED: KETOROLAC 30 MG/ML VIAL IVP ONE (14:45)
[2018-10-08] MEDS ORDERED: LORazepam INJ 2 MG/ML (ATIVAN) VIAL IVP ONE (14:45)
--- NOTE | 2018-10-08 14:53 | NUR ---
2ND BLOOD CULTURE DRAWN FROM EJ DUE TO UNSUCCESSFUL ATTEMPTS AT OTHER SITES.
[2018-10-08 15:01] LABS: HEMATOCRIT 57 % (40-54); HEMOGLOBIN 18.7 G/DL (13.3-17.7); MEAN CORPUSCULAR HEMOGLOBIN 29 PG (25-34); MEAN CORPUSCULAR VOLUME 88 FL (80-99); WHITE BLOOD COUNT 31.6 10^3/uL (4.3-11.0)
[2018-10-08 15:02] LABS: BASOPHILS % (AUTO) 1 % (0-10); EOSINOPHILS % (AUTO) 0 % (0-10); LYMPHOCYTES # (AUTO) 1.2 X 10^3 (1.0-4.0); LYMPHOCYTES % (AUTO) 4 % (12-44); MEAN CORPUSCULAR HGB CONC 33 G/DL (32-36); MEAN PLATELET VOLUME 10.4 FL (7.4-10.4); MONOCYTES % (AUTO) 1 % (0-12); NEUTROPHILS # (AUTO) 29.1 X 10^3 (1.8-7.8); NEUTROPHILS % (AUTO) 92 % (42-75); PLATELET COUNT 238 10^3/uL (130-400); RED CELL DISTRIBUTION WIDTH 13.3 % (10.0-14.5)
[2018-10-08 15:03] LABS: BASOPHILS # (AUTO) 0.2 10^3/uL (0.0-0.1); MONOCYTES # (AUTO) 0.3 X 10^3 (0.0-1.0)
[2018-10-08 15:08] LABS: AMPHETAMINE SCREEN, URINE POSITIVE (NEGATIVE); BARBITURATE SCREEN URINE NEGATIVE (NEGATIVE); BENZODIAZEPINES SCREEN URINE POSITIVE (NEGATIVE); CANNABINOID SCREEN, URINE POSITIVE (NEGATIVE); COCAINE SCREEN URINE NEGATIVE (NEGATIVE); METHADONE STAT NEGATIVE (NEGATIVE); METHAMPHETAMINE SCREEN URINE S POSITIVE (NEGATIVE); OPIATE SCREEN URINE POSITIVE (NEGATIVE); OXYCODONE STAT NEGATIVE (NEGATIVE); PROPOXYPHENE STAT NEGATIVE (NEGATIVE); TRICYCLIC ANTIDEPRESSANTS SCRE POSITIVE (NEGATIVE)
[2018-10-08] MEDS ORDERED: NS (IVPB) 250 ML ONE (15:08)
[2018-10-08] MEDS ORDERED: VANCOMYCIN 1000 MG/VIAL ONE (15:08)
[2018-10-08 15:13] LABS: BILIRUBIN,URINE NEGATIVE (NEGATIVE); CLARITY,URINE CLEAR; COLOR,URINE YELLOW; GLUCOSE, URINE (UA) NEGATIVE (NEGATIVE); KETONES,URINE NEGATIVE (NEGATIVE); LEUKOCYTE ESTERASE ,URINE NEGATIVE (NEGATIVE); NITRITE,URINE NEGATIVE (NEGATIVE); PROTEIN,URINE NEGATIVE (NEGATIVE); UROBILINOGEN,URINE 0.2 MG/DL (NORMAL); WBC,URINE 0-2 /HPF
[2018-10-08 15:14] LABS: BACTERIA,URINE NEGATIVE /HPF
[2018-10-08 15:15] LABS: ALANINE AMINOTRANSFERASE 19 U/L (0-55); ALKALINE PHOSPHATASE 108 U/L (40-136); BILIRUBIN,TOTAL 0.6 MG/DL (0.1-1.0); BUN/CREATININE RATIO 14; CALCIUM 9.5 MG/DL (8.5-10.1); CARBON DIOXIDE 22 MMOL/L (21-32); CHLORIDE 101 MMOL/L (98-107); CREATININE SERUM 0.94 MG/DL (0.60-1.30); GFR ESTIMATED > 60; GLUCOSE 90 MG/DL (70-105); POTASSIUM 4.1 MMOL/L (3.6-5.0); SODIUM 138 MMOL/L (135-145); TOTAL PROTEIN 7.4 GM/DL (6.4-8.2)
[2018-10-08] MEDS ORDERED: VANCOMYCIN INJECTION 1,000 MG in NS (IVPB) 250 ML IV ONE (15:15)
[2018-10-08 15:16] LABS: ALBUMIN 4.3 GM/DL (3.2-4.5)
[2018-10-08 15:22] LABS: BAND NEUTROPHILS 21 %; BASOPHILS % (MANUAL) 0 %; EOSINOPHILS % (MANUAL) 0 %; LYMPHOCYTES % (MANUAL) 2 %; MONOCYTES % (MANUAL) 1 %; NEUTROPHILS % (MANUAL) 76 %; RBC MORPH NORMAL
--- NOTE | 2018-10-08 15:38 | Diagnostic Imaging Report ---
INDICATION: Seizures. TIME OF EXAM: 03:02 p.m. COMPARISON: No prior studies are available for comparison. FINDINGS: The heart size is normal. The pulmonary vascularity is unremarkable. The lungs are clear. No infiltrate, effusion or pneumothorax is detected. IMPRESSION: No acute cardiopulmonary process is detected. Dictated by: Dictated on workstation # [id number]
--- NOTE | 2018-10-08 15:56 | NUR ---
IN TALKING TO PT AT THIS TIME.
--- NOTE | 2018-10-08 16:25 | NUR ---
CRACKERS, PUDDING, AND APPLE JUICE GIVEN TO PT.
--- OUTSIDE RECORDS SUMMARY | 2018-10-08 16:27 | XMS REPORT | Continuity of Care Document ---
Author Organization Unknown Address Unknown Allergies Active Description Code Type Severity Reaction Onset Reported/Identified Relationship to Patient Clinical Status Yes No known allergies Drug N/A N/A Yes No known drug allergies [id number] ND N/A N/A Confirmed or Verified Yes Tylenol with Codeine #3 Drug N/A N/A Yes NO NAME AVAILABLE 49108 DRUG N/A N/A Medications There is no [...] Status Pt. Type Provider Facility Loc./Unit Complaint [id number] 11/29/2017 04:46:00 12/01/2017 11:35:00 DIS V ELHAM PHILLIPS [facility] OBS UTI, acute kidney injury, suicidal ideation, methamphetamine abuse [id number] 11/29/2017 04:46:00 11/29/2017 06:35:00 DIS Emergency RADHA TAM [facility] ED ED visit [id number] 09/02/2014 19:15:00 09/04/2014 12:05:00 DIS Inpatient HAYDEN KUHN W [facility] [id number] 08/18/2013 14:37:00 08/28/2013 10:50:00 DIS Inpatient GERHARD PRATER [facility] 2F [id number] 03/15/2014 00:00:00 Document Registration [id number] 03/15/2013 00:00:00 Document Registration [id number] 05/15/2018 14:08:00 ACT Unknown
--- NOTE | 2018-10-08 16:28 | NUR ---
DISPATCH NOTIFIED OF TRANSFER.
--- NOTE | 2018-10-08 17:40 | NUR ---
MANUEL TERRY admitted to room 406-1, with an admitting diagnosis of POLYSUBSTANCE ABUSE, SEPSIS, EPILEPSY WITH BENZO AND OPIATE WITHDRAWAL, on 10/08/18 from [facility] via EMS, accompanied by STAFF AND HOUSEKEEPING COORDINATOR. MANUEL TERRY introduced to surroundings, call light, bed controls, phone, TV, temperature control, lights, meal times, smoking policy, visitor policy, side rail policy, bathrooms and showers. Patient Rights given to patient in the handbook. MANUEL TERRY verbalizes understanding that [facility] is not responsible for the loss or damage to any personal effects or valuables that are kept in the patients posession during their hospitalization. MANUEL TERRY verbalizes understanding of Interdisciplinary Patient Education. Patient and/or family were informed about the Rapid Response Team and its purpose.
[2018-10-08 17:47] VITALS: BP 144/77
[2018-10-08] MEDS ORDERED: NS IV 1000 ML 1,000 ML IV SCH (18:02)
[2018-10-08] MEDS ORDERED: NS IV ONE (18:15)
[2018-10-08] MEDS ORDERED: LACTATED RINGERS IV PRN (18:15)
[2018-10-08] MEDS ORDERED: ONDANSETRON 4 MG/2 ML (SDV) Z0FRAN IV PRN (18:15)
[2018-10-08] MEDS ORDERED: KETOROLAC 15 MG/ML VIAL IV PRN (18:15)
[2018-10-08] MEDS: LORazepam INJ 2 MG/ML (ATIVAN) VIAL IV PRN (18:42)
--- NOTE | 2018-10-08 19:11 | NUR ---
CONTINUE CEFEPIME & VANCO PER SEPSIS ORDER SET (CEFEPIME 1 GM IV Q6H X 7 DAYS & VANCO IV - PHARMACY TO DOSE X [address]) PER DR CERNA RBTO [id number] 10-08-18
[2018-10-08 19:15] VITALS: BP 149/83
[2018-10-08] MEDS ORDERED: VANCOMYCIN 500 MG/NS 100 ML IV NR ×2 (19:15)
[2018-10-08] MEDS: LACTATED RINGERS 1,000 ML IV SCH (20:47)
[2018-10-08] MEDS ORDERED: KETOROLAC 15 MG/ML VIAL ONE (21:35)
[2018-10-08] MEDS: KETOROLAC 15 MG/ML VIAL IV PRN (21:50)
[2018-10-08] MEDS: CEFEPIME 1,000 MG/SWFI 10 ML IV PUSH IV SCH ×2 (22:35)
[2018-10-09] VITALS (10 sets, daily range): BP systolic 108–148; BP diastolic 65–94
[2018-10-09] MEDS: LORazepam INJ 2 MG/ML (ATIVAN) VIAL IV PRN ×4 (01:01→22:17)
[2018-10-09] MEDS: LEVETIRACETAM 1,000 MG/NS 100 ML IVPB IV SCH ×4 (01:39→13:37)
[2018-10-09] MEDS: LACTATED RINGERS 1,000 ML IV SCH ×5 (02:33→17:10)
[2018-10-09] MEDS: CEFEPIME 1,000 MG/SWFI 10 ML IV PUSH IV SCH ×8 (03:38→21:11)
[2018-10-09 06:30] LABS: BASOPHILS # (AUTO) 0.1 10^3/uL (0.0-0.1); BASOPHILS % (AUTO) 1 % (0-10); EOSINOPHILS # (AUTO) 0.2 10^3/uL (0.0-0.3); EOSINOPHILS % (AUTO) 1 % (0-10); HEMATOCRIT 51 % (40-54); HEMOGLOBIN 16.7 G/DL (13.3-17.7); LYMPHOCYTES # (AUTO) 2.5 X 10^3 (1.0-4.0); LYMPHOCYTES % (AUTO) 21 % (12-44); MEAN CORPUSCULAR HEMOGLOBIN 28 PG (25-34); MEAN CORPUSCULAR HGB CONC 33 G/DL (32-36); MEAN CORPUSCULAR VOLUME 87 FL (80-99); MEAN PLATELET VOLUME 10.9 FL (7.4-10.4); MONOCYTES % (AUTO) 8 % (0-12); NEUTROPHILS # (AUTO) 8.3 X 10^3 (1.8-7.8); NEUTROPHILS % (AUTO) 69 % (42-75); PLATELET COUNT 228 10^3/uL (130-400); RED CELL DISTRIBUTION WIDTH 13.5 % (10.0-14.5)
[2018-10-09] MEDS: VANCOMYCIN 1250 MG/NS 250 ML IVPB IV SCH ×4 (06:32→19:44)
[2018-10-09 06:46] LABS: ALANINE AMINOTRANSFERASE 17 U/L (0-55); ALBUMIN 3.3 GM/DL (3.2-4.5); ALKALINE PHOSPHATASE 86 U/L (40-136); BILIRUBIN,TOTAL 0.2 MG/DL (0.1-1.0); BUN/CREATININE RATIO 14; CALCIUM 8.8 MG/DL (8.5-10.1); CARBON DIOXIDE 18 MMOL/L (21-32); CHLORIDE 110 MMOL/L (98-107); CREATININE SERUM 0.91 MG/DL (0.60-1.30); GFR ESTIMATED > 60; GLUCOSE 97 MG/DL (70-105); POTASSIUM 4.6 MMOL/L (3.6-5.0); SODIUM 140 MMOL/L (135-145); TOTAL PROTEIN 5.9 GM/DL (6.4-8.2)
[2018-10-09] MEDS ORDERED: MIDAZOLAM 5 MG/5 ML (VERSED) VIAL ONE (07:29)
[2018-10-09] MEDS ORDERED: fentaNYL INJECTION 100 MCG/2 ML AMP ONE (07:29)
[2018-10-09] MEDS ORDERED: LIDOCAINE 2% VISCOUS 15 ML UDC ONE (07:30)
[2018-10-09] MEDS ORDERED: NS IV 1000 ML 1,000 ML ONE (07:30)
[2018-10-09] MEDS ORDERED: NS IV 1000 ML 1,000 ML IV ONE (07:43)
[2018-10-09] MEDS ORDERED: MIDAZOLAM 5 MG/5 ML (VERSED) VIAL IV ONE (07:45)
[2018-10-09] MEDS ORDERED: fentaNYL INJECTION 100 MCG/2 ML AMP IV ONE (07:45)
[2018-10-09] MEDS ORDERED: LIDOCAINE 2% VISCOUS 15 ML UDC PO ONE (07:45)
[2018-10-09] MEDS ORDERED: proPOfol 200 MG/20 ML (DIPRIVAN) VIAL IV ONE ×2 (08:10→08:20)
[2018-10-09] MEDS ORDERED: PROPOFOL DRIP (ICU) 0 ML IV ONE (08:19)
--- NOTE | 2018-10-09 09:25 | NUR ---
PATIENT STATES HE TAKES KLONOPIN 1MG QID AND KEPPRA 750MG BID HOWEVER WHEN I ASK WHERE HE FILLS THEM HE SAYS HIS HANDLES THAT, I ASKED IF I COULD CALL HER AND HE STATES NO, YOUR BEST BET WOULD BE [facility], THEY HAVE BEEN MY REGULAR. WHEN HES NOT IN [facility] HE STATES IT IS HIT OR MISS. I ASKED IF HE WAS RECENTLY THERE AND HE STATES YES. I CALLED [facility] AND THEY STATE THE LAST TIME HE WAS THERE WAS October. ACCORDING TO [facility] HE LAST FILLED CLONAZEPAM 0.5MG #120 FOR A 30 DAY SUPPLY 11-16-17 FROM [facility]. I CALLED HER OFFICE AND THEY STATE THEY HAVE NOT SEEN THE PATIENT SINCE 2014 HOWEVER DID VERIFY THE [facility] SEES PATIENTS IN THE [facility], HE IS NOT A PATIENT OF THEIRS OUTSIDE OF THAT HOWEVER. I SET THE PROFILE TO NO MEDICATIONS AT THIS TIME SINCE I AM NOT ABLE TO VERIFY IF/WHEN THE KEPPRA HAS BEEN FILLED AND THE CLONAZEPAM IN OLD.
--- NOTE | 2018-10-09 09:46 | Consultation-Cardiology ---
HPI-Cardiology Cardiology Consultation: Date of Consultation 10/09/18 Time Seen by a Provider: 08:00 Date of Admission Attending Physician Michael Astorga MD Admitting Physician No,Local Physician Consulting Physician KIM KUMARI MD, MA, FACP, FACC, [employer] [facility] [employer], CCDS Physician requesting consult: Dr Astorga HPI: Chief Complaint: Reason for consultation: Evaluate for endocarditis HPI 37 yo man incarcerated in the custody of [facility] who was brought to [facility] with tremor, chills and intermittent high-grade fevers (up to 103 deg F) for several. He denies cp or any significant shortness of breath or palp or syncope. Reports a h/o seizures. Has h/o iv drug abuse. He was diagnosed with sepsis by the ER physician and transferred to this hosp to the Hospitalist [facility]. We have been asked to see him for eval for endocarditis Review of Systems-Cardiology Review of Systems Constitutional: malaise, tiredness; No weight loss, No weight gain Eyes: No vision change Ears/Nose/Throat: No ear discharge, No recent hearing loss Respiratory: As described under HPI Cardiovascular: As described under HPI Gastrointestinal: No constipation, No diarrhea, No nausea, No vomiting Genitourinary: No dysuria, No hematuria, No urine frequency changes Musculoskeletal: No back pain, No joint pain, No neck pain Skin: No rash, No ulcerations Psychiatric/Neurological: No focal weakness, No syncope Hematologic: No bleeding abnormalities QNR-Vtwgto-Malomr Hx Patient Social History Alcohol Use: Denies Use Recreational Drug Use: Yes (STREET MS, FENTENYL, HYDROCODONE, XANAX, POT) Drug of Choice: IV morphine and fentanyl Smoking Status: Current Everyday Smoker Type Used: Cigarettes (1/2 ppd) Recent Foreign Travel: No Recent Infectious Disease Expo: No Past Medical History PMH As described under Assessment. Family Medical History Family Medical History: Does not report fam h/o early CAD or SCD Allergies and Home Medications Allergies Coded Allergies: No Known Drug Allergies (Unverified , 10/08/18) Home Medications No Active Prescriptions or Reported Meds Patient Home Medication List Home Medication List Reviewed: Yes Physical Exam-Cardiology Physical Exam Vital Signs/I&O 10/09/18 10/09/18 10/09/18 10/09/18 00:19 03:57 07:25 08:00 Temp 99.1 97.0 Pulse 91 87 76 Resp 18 20 18 B/P (MAP) 133/71 (91) 108/65 (79) 148/94 (112) Pulse Ox 97 95 98 O2 Delivery Room Air Room Air Room Air Room Air 10/09/18 10/09/18 10/09/18 10/09/18 08:12 08:15 08:15 08:33 Pulse 82 84 Resp 18 16 B/P (MAP) 137/89 (105) 134/90 (105) Pulse Ox 98 98 96 O2 Delivery Nasal Cannula Nasal Cannula Nasal Cannula O2 Flow Rate 5.00 3.00 5.00 10/09/18 10/09/18 08:48 08:55 Pulse 85 92 Resp 18 18 B/P (MAP) 116/80 (92) 111/82 (92) Pulse Ox 97 96 O2 Delivery Nasal Cannula Room Air O2 Flow Rate 2.00 10/09/18 00:00 Intake Total 2280 ml Output Total 300 ml Balance 1980 ml Capillary Refill : Less Than 3 SecondsLess Than 3 Seconds Constitutional: AAO x 3, well-developed, well-nourished HEENT: EOMI, hearing is well preserved; No xanthelasmas are seen Neck: carotid pulses are 2 + bilaterally, with good upstrokes Respiratory: No accessory muscle use; lungs clear to percussion, lungs clear to auscultation Cardiovascular: S1 and S2, systolic murmur (2-3/d HSM at card base) Gastrointestinal: No tender; soft; No guarding, No rebound; audible bowel sounds Extremities: No clubbing, No cyanosis, No significant edema Neurologic/Psychiatric: oriented x 3, grossly intact, power is 5/5 both on sides Skin: No rash, No ulcerations Data Review Labs Laboratory Tests 10/08/18 14:36: White Blood Count 31.6*H, Red Blood Count 6.45H, Hemoglobin 18.7H, Hematocrit 57H, Mean Corpuscular Volume 88, Mean Corpuscular Hemoglobin 29, Mean Corpuscular Hemoglobin Concent 33, Red Cell Distribution Width 13.3, Platelet Count 238, Mean Platelet Volume 10.4, Neutrophils (%) (Auto) 92H, Lymphocytes (%) (Auto) 4L, Monocytes (%) (Auto) 1, Eosinophils (%) (Auto) 0, Basophils (%) (Auto) 1, Neutrophils # (Auto) 29.1H, Lymphocytes # (Auto) 1.2, Monocytes # (Auto) 0.3, Eosinophils # (Auto) 0.0, Basophils # (Auto) 0.2H, Neutrophils % (Manual) 76, Lymphocytes % (Manual) 2, Monocytes % (Manual) 1, Eosinophils % ( Manual) 0, Basophils % (Manual) 0, Band Neutrophils 21, Blood Morphology Comment NORMAL, Prothrombin Time 14.0, INR Comment 1.0, Activated Partial Thromboplast Time 27, Sodium Level 138, Potassium Level 4.1, Chloride Level 101, Carbon Dioxide Level 22, Anion Gap 15H, Blood Urea Nitrogen 13, Creatinine 0.94, Estimat Glomerular Filtration Rate > 60, BUN/Creatinine Ratio 14, Glucose Level 90, Lactic Acid Level 1.82, Calcium Level 9.5, Corrected Calcium 9.3, Total Bilirubin 0.6, Aspartate Amino Transf (AST/SGOT) 13, Alanine Aminotransferase (ALT/SGPT) 19, Alkaline Phosphatase 108, Total Protein 7.4, Albumin 4.3 10/08/18 14:45: Urine Color YELLOW, Urine Clarity CLEAR, Urine pH 6.0, Urine Specific [place] 1.020, Urine Protein NEGATIVE, Urine Glucose (UA) NEGATIVE, Urine Ketones NEGATIVE, Urine Nitrite NEGATIVE, Urine Bilirubin NEGATIVE, Urine Urobilinogen 0.2, Urine Leukocyte Esterase NEGATIVE, Urine RBC (Auto) NEGATIVE, Urine RBC NONE, Urine WBC 0-2, Urine Squamous Epithelial Cells NONE, Urine Crystals NONE, Urine Bacteria NEGATIVE, Urine Casts NONE, Urine Mucus MODERATEH, Urine Culture Indicated NO, Urine Opiates Screen POSITIVEH, Urine Oxycodone Screen NEGATIVE, Urine Methadone Screen NEGATIVE, Urine Propoxyphene Screen NEGATIVE, Urine Barbiturates Screen NEGATIVE, Ur Tricyclic Antidepressants Screen POSITIVEH, Urine Phencyclidine Screen NEGATIVE, Urine Amphetamines Screen POSITIVEH, Urine Methamphetamines Screen POSITIVEH, Urine Benzodiazepines Screen POSITIVEH, Urine Cocaine Screen NEGATIVE, Urine Cannabinoids Screen POSITIVEH 10/09/18 06:08: White Blood Count 12.0H, Red Blood Count 5.88H, Hemoglobin 16.7, Hematocrit 51, Mean Corpuscular Volume 87, Mean Corpuscular Hemoglobin 28, Mean Corpuscular Hemoglobin Concent 33, Red Cell Distribution Width 13.5, Platelet Count 228, Mean Platelet Volume 10.9H, Neutrophils (%) (Auto) 69, Lymphocytes (%) (Auto) 21, Monocytes (%) (Auto) 8, Eosinophils (%) (Auto) 1, Basophils (%) (Auto) 1, Neutrophils # (Auto) 8.3H, Lymphocytes # (Auto) 2.5, Monocytes # (Auto) 1.0, Eosinophils # (Auto) 0.2, Basophils # (Auto) 0.1, Sodium Level 140, Potassium Level 4.6, Chloride Level 110H, Carbon Dioxide Level 18L, Anion Gap 12, Blood Urea Nitrogen 13, Creatinine 0.91, Estimat Glomerular Filtration Rate > 60, BUN/Creatinine Ratio 14, Glucose Level 97, Calcium Level 8.8, Corrected Calcium 9.4, Total Bilirubin 0.2, Aspartate Amino Transf (AST/SGOT) 14, Alanine Aminotransferase (ALT/SGPT) 17, Alkaline Phosphatase 86, Total Protein 5.9L, Albumin 3.3 Laboratory Tests 10/08/18 14:36 10/09/18 06:08 A/P-Cardiology Assessment/Admission Diagnosis Sepsis, source undetermined No evidence of endocarditis on trans-thoracic and trans-esophageal echo of 10/09/18 Pulm hypertension with estimated pulm artery systolic pressure of approx 60 mmHg, etiology undetermined LVEF approx 50%, RVSP 50 mmHg, mild right heart enlargement, no evidence of endocarditis or intracardiac thrombus on TTE and HARVEY of 10/09/18 Chronic tobacco use Chronic street drug use (including iv drug use) Discussion and Recomendations * Management of sepsis and drug-withdrawal syndrome is with the Hospitalist Sv[facility] * I spoke with Dr Escobar of the Pul [facility] for eval of patient's pulm hypertension * Pt advised to refrain from drug and tobacco use Clinical Quality Measures DVT/VTE Risk/Contraindication: Risk Factor Score Per Nursin RFS Level Per Nursing on Admit: 3=High KIM KUMARI MD FACP FAC CCDS Oct 09, 2018 09:46
[2018-10-09] MEDS: NICOTINE 21 MG (NICODERM) PATCH TD SCH (10:43)
--- NOTE | 2018-10-09 10:45 | History & Physical-Hospitalist ---
History of Present Illness HPI/Chief Complaint CC: Fever with Seizures HPI: This is a 37yoWM with a known seizure disorder and illicit drug abuse including IV drugs who presented after he was arrested for drug paraphernalia and manufacturing and distributing illicit drugs who was sent to the ER due to fever of 103 and concern for endocarditis due to IV drug use. He did undergo a transesophageal echocardiogram today which was normal by Dr. Brooks but did reveal mitral valve prolapse. He has been maintained on IV seizure medication of Keppra, has not had a seizure since admission and pulmonary hypertension will be addressed by Dr. Escobar. He does work, self-employed for the [employer]. He does have a sore throat but is able to eat and drink and there is a Residential Le[employer] Manager[employer] [place] at the bedside since he is in custody of law enforcement. Pt maintained on Vancomycin and Cefepime and will await for final cultures tomorrow and plan for discharge since his white count was 31,000 down to 12 this morning. Source: patient, police, RN/MD Exam Limitations: no limitations Date Seen 10/09/18 Time Seen by a Provider: 10:00 Attending Physician Michael Astorga MD PCP No,Local Physician Referring Physician Date of Admission Oct 08, 2018 at 15:05 Home Medications & Allergies Home Medications Reviewed patient Home Medication Reconciliation performed by pharmacy medication reconciliations program technician and/or nursing. Patients Allergies have been reviewed. Allergies Allergies Coded Allergies No Known Drug Allergies (Unverified10/08/18) Past Wbraxdr-Gdgtpx-Fclrny Hx Past Med/Social Hx: Reviewed Nursing Past Med/Soc Hx, Reviewed and Corrections made Patient Social History Marrital Status: cohabiting Employed/Student: employed (self employed construction) Alcohol Use: Denies Use Recreational Drug Use: Yes (STREET MS, FENTENYL, HYDROCODONE, XANAX, POT) Drug of Choice: IV morphine and fentanyl Smoking Status: Current Everyday Smoker Type Used: Cigarettes (1/2 ppd) Recent Foreign Travel: No Contact w/other who traveled: No Recent Hopitalizations: No Recent Infectious Disease Expo: No Seasonal Allergies Seasonal Allergies: No Past Medical History Surgeries: Abdominal, Orthopedic Neurological: Seizure Disorder Review of Systems Constitutional: see HPI, chills, fever, malaise, weakness EENTM: no symptoms reported Respiratory: no symptoms reported Cardiovascular: no symptoms reported Gastrointestinal: no symptoms reported Genitourinary: no symptoms reported Musculoskeletal: no symptoms reported Skin: no symptoms reported Psychiatric/Neurological: No Symptoms Reported All Other Systems Reviewed Negative Unless Noted: Yes Physical Exam Physical Exam Vital Signs Vital Signs - First Documented 10/08/18 10/09/18 14:23 08:12 Temp 99.4 Pulse 99 Resp 16 B/P (MAP) 141/97 (112) Pulse Ox 96 O2 Delivery Room Air O2 Flow Rate 5.00 Capillary Refill : Less Than 3 SecondsLess Than 3 Seconds Height, Weight, BMI Height: 5'7.00" Weight: 169lbs. 1.0oz. [id number]; BMI Method:Estimated General Appearance: No Apparent Distress, WD/WN, Anxious, Chronically ill, Thin Eyes: Right Eye Normal Inspection, Right Eye PERRL HEENT: PERRL/EOMI, Normal ENT Inspection, Pharynx Normal, Moist Mucous Membranes Neck: Full Range of Motion, Normal Inspection, Non Tender Respiratory: Chest Non Tender, Lungs Clear, Normal Breath Sounds, No Accessory Muscle Use, No Respiratory Distress Cardiovascular: Regular Rate, Rhythm, No Edema, No Gallop, No JVD, No Murmur, Normal Peripheral Pulses Gastrointestinal: Normal Bowel Sounds, No Organomegaly, No Pulsatile Mass, Non Tender, Soft Back: Normal Inspection, No CVA Tenderness, No Vertebral Tenderness Extremity: Normal Capillary Refill, Normal Inspection, Normal Range of Motion, Non Tender, No Calf Tenderness, No Pedal Edema Neurologic/Psychiatric: Alert, Oriented x3, No Motor/Sensory Deficits, Normal Mood/Affect Skin: Normal Color, Warm/Dry Lymphatic: No Adenopathy Results Results/Procedures Labs Laboratory Tests 10/08/18 14:36 10/09/18 06:08 Patient resulted labs reviewed. Assessment/Plan Admission Diagnosis Assessment: FUO IVDA Seizure d/o Smoker Plan: HARVEY normal IV abx Await Cx Home meds Admission Status: Inpatient Order (span 2 midnights) Reason for Inpatient Admission: fever in IVDA Diagnosis/Problems Diagnosis/Problems (1) Sepsis Status: Acute Qualifiers: Sepsis type: sepsis due to unspecified organism Qualified Codes: A41.9 - Sepsis, unspecified organism (2) History of epilepsy Status: Chronic (3) Drug abuse and dependence Status: Chronic Clinical Quality Measures DVT/VTE Risk/Contraindication: Risk Factor Score Per Nursin RFS Level Per Nursing on Admit: 3=High CYNDY ART DO Oct 09, 2018 10:45
[2018-10-09] MEDS: KETOROLAC 15 MG/ML VIAL IV PRN ×2 (13:37→20:30)
--- NOTE | 2018-10-09 14:56 | Anesthesia-Procedure Note ---
Procedures/Interventions Procedure Start/Stop/Diagnosis Date of Procedure: Oct 09, 2018 Start Time: 08:15 Referring Physician: Todd Brief History Called to clinical lab scientist to assist with sedation. Patient already given versed and Fentanyl and remains wide awake. Dr. Brooks requesting anesthesia's assistance. I obtained a brief history and sedated the gentleman with Propofol for the HARVEY. A total of 250 mg of Propofol IV was given for the procedure. VSS. Spontaneous respirations throughout. Report off to DUSTY Gaston Stop Time: 08:33 LALITA DAWSON CRNA Oct 09, 2018 14:56
--- NOTE | 2018-10-09 15:02 | NUR ---
Attempted visit: pt resting with eyes closed. Chaplains to follow up as needed.
--- NOTE | 2018-10-09 15:10 | NUR ---
REPORT RECEIVED FROM DUSTY MCKENZIE.
--- NOTE | 2018-10-09 15:37 | NUR ---
PT MOVED TO ROOM 416; DEPUTY KEENE AT BEDSIDE. PT SLEEPING.
--- NOTE | 2018-10-09 22:30 | NUR ---
THIS RN CONTACTED DR. ART IN REGARDS TO THE PT REQUESTING SOMETHING FOR SLEEP AFTER RECEIVING 1 MG ATIVAN IV AT 2217. DR. ART STATED SHE WILL NOT ORDER ANYTHING FOR SLEEP FOR THE PT TONIGHT. WILL CONTINUE TO MONITOR.
[2018-10-10] MEDS: LACTATED RINGERS 1,000 ML IV SCH ×4 (00:27→12:46)
[2018-10-10 00:45] VITALS: BP 141/83
[2018-10-10] MEDS: LEVETIRACETAM 1,000 MG/NS 100 ML IVPB IV SCH ×4 (01:46→14:05)
[2018-10-10] MEDS: CEFEPIME 1,000 MG/SWFI 10 ML IV PUSH IV SCH ×6 (03:22→15:35)
[2018-10-10] MEDS: LORazepam INJ 2 MG/ML (ATIVAN) VIAL IV PRN ×2 (04:28→10:27)
[2018-10-10 04:30] VITALS: BP 134/79
[2018-10-10] MEDS: VANCOMYCIN 1250 MG/NS 250 ML IVPB IV SCH ×2 (05:59)
[2018-10-10 08:17] VITALS: BP 129/60
--- NOTE | 2018-10-10 08:36 | Progress Note-Hospitalist ---
Subjective HPI/CC On Admission Date Seen by Provider: Oct 10, 2018 Time Seen by Provider: 09:00 CC: Fever with Seizures HPI: This is a 37yoWM with a known seizure disorder and illicit drug abuse including IV drugs who presented after he was arrested for drug paraphernalia and manufacturing and distributing illicit drugs who was sent to the ER due to fever of 103 and concern for endocarditis due to IV drug use. He did undergo a transesophageal echocardiogram today which was normal by Dr. Brooks but did reveal mitral valve prolapse. He has been maintained on IV seizure medication of Keppra, has not had a seizure since admission and pulmonary hypertension will be addressed by Dr. Escobar. He does work, self-employed for the construction industry. He does have a sore throat but is able to eat and drink and there is a [employer]ler T[employer] Operator's [place] at the bedside since he is in custody of law enforcement. Pt maintained on Vancomycin and Cefepime and will await for final cultures tomorrow and plan for discharge since his white count was 31,000 down to 12 this morning. Subjective/Events-last exam Pt had a good night. Asked for something for his sleep but he already had Ativan 1 Mg IV Q6hrs for alcohol withdrawal so that was declined. Pt is in custody of police and there is a deputy at the bedside. Blood cultures positive for gram negative eyad so will await the final sensitivity prior to discharge. Bowels are moving. Eating and drinking. I encouraged him to get up and around today and ambulate. Focused Exam Lactate Level 10/08/18 14:36: Lactic Acid Level 1.82 Objective Exam Vital Signs Vital Signs Date Time Temp Pulse Resp B/P (MAP) Pulse Ox O2 Delivery O2 Flow Rate FiO2 10/10/18 12:18 98.6 79 20 126/79 (95) 97 Room Air 0.00 Capillary Refill : Less Than 3 SecondsLess Than 3 Seconds General Appearance: No Apparent Distress, WD/WN, Anxious, Chronically ill, Thin HEENT: PERRL/EOMI, Normal ENT Inspection, Pharynx Normal, Moist Mucous Membranes Neck: Full Range of Motion, Normal Inspection, Non Tender Respiratory: Chest Non Tender, Lungs Clear, Normal Breath Sounds, No Accessory Muscle Use, No Respiratory Distress Cardiovascular: Regular Rate, Rhythm, No Edema, No Gallop, No JVD, No Murmur, Normal Peripheral Pulses Gastrointestinal: Normal Bowel Sounds, No Organomegaly, No Pulsatile Mass, Non Tender, Soft Back: Normal Inspection, No CVA Tenderness, No Vertebral Tenderness Extremity: Normal Capillary Refill, Normal Inspection, Normal Range of Motion, Non Tender, No Calf Tenderness, No Pedal Edema Neurologic/Psychiatric: Alert, Oriented x3, No Motor/Sensory Deficits, Normal Mood/Affect Skin: Normal Color, Warm/Dry Lymphatic: No Adenopathy Results/Procedures Lab Patient resulted labs reviewed. Assessment/Plan Assessment and Plan Assess & Plan/Chief Complaint Assessment: Sepsis Bacteremia with gram negative rods awaiting ID DEVAN Plan: IV abx Monitor closely Diagnosis/Problems Diagnosis/Problems (1) Sepsis Status: Acute Qualifiers: Sepsis type: sepsis due to unspecified organism Qualified Codes: A41.9 - Sepsis, unspecified organism (2) History of epilepsy Status: Chronic (3) Drug abuse and dependence Status: Chronic (4) Gram-negative bacteremia Status: Acute Clinical Quality Measures DVT/VTE Risk/Contraindication: Risk Factor Score Per Nursin RFS Level Per Nursing on Admit: 3=High CYNDY ART DO Oct 10, 2018 08:36
[2018-10-10] MEDS: NICOTINE 21 MG (NICODERM) PATCH TD SCH (08:38)
[2018-10-10] MEDS ORDERED: NICOTINE PATCH REMOVAL TP SCH (09:00)
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
--- NOTE | 2018-10-10 12:06 | NUR ---
Officer requested a tray for patient. I have placed order on disposable tray and utensils.
[2018-10-10 12:18] VITALS: BP 126/79
--- NOTE | 2018-10-10 21:15 | Discharge Summary-Hospitalist ---
Diagnosis/Chief Complaint Date of Admission Oct 08, 2018 at 15:05 Date of Discharge Oct 10, 2018 at 16:06 Admission Diagnosis Assessment: FUO IVDA Seizure d/o Smoker Plan: HARVEY normal IV abx Await Cx Home meds Discharge Diagnosis (1) Sepsis Status: Acute (2) History of epilepsy Status: Chronic (3) Drug abuse and dependence Status: Chronic (4) Gram-negative bacteremia Status: Acute Discharge Summary Discharge Physical Exam Allergies: Coded Allergies: No Known Drug Allergies (Unverified , 10/08/18) Vitals & I&Os Vital Signs Date Time Temp Pulse Resp B/P (MAP) Pulse Ox O2 Delivery O2 Flow Rate FiO2 10/10/18 12:18 98.6 79 20 126/79 (95) 97 Room Air 0.00 General Appearance: No Apparent Distress, WD/WN, Chronically ill Hospital Course Was the Problem List Reviewed?: Yes Hospital course: patient admitted for sepsis after arrested and patient was placed on IV abx and HARVEY performed to r/o endocarditis which was negative. Awaiting BCx ID but patient was released from custody and left AMA 5 minutes later. Labs (last 24 hrs) Microbiology 10/08/18 Blood Culture - Preliminary, Resulted No growth 10/08/18 Urine Culture - Final, Complete NO GROWTH Patient resulted labs reviewed. Discussion & Recommendations Discharge Planning: <30 minutes discharge planning Discharge Home Medications: Active Scripts Active No Active Prescriptions or Reported Medications Instructions to patient/family Please see electronic discharge instructions given to patient. Clinical Quality Measures DVT/VTE Risk/Contraindication: Risk Factor Score Per Nursin RFS Level Per Nursing on Admit: 3=High Problem Qualifiers (1) Sepsis: Sepsis type: sepsis due to unspecified organism Qualified Codes: A41.9 - Sepsis, unspecified organism CYNDY ART DO Oct 10, 2018 21:15
== END 2018-10-10 16:06 | disposition left against medical advice (07) | DRG 872 ==
LOC: ER FS 14:24 → 4TH 15:05
PROVIDERS: ADMIT Internal Medicine; ATTEND Internal Medicine
DX: A41.50 Gram-negative sepsis, unspecified (principal); I27.23 Pulmonary hypertension due to lung diseases and hypoxia; G47.33 Obstructive sleep apnea (adult) (pediatric); G40.909 Epilepsy, unspecified, not intractable, without status epilepticus; I34.1 Nonrheumatic mitral (valve) prolapse; B86 Scabies; J02.9 Acute pharyngitis, unspecified; F17.210 Nicotine dependence, cigarettes, uncomplicated; F19.10 Other psychoactive substance abuse, uncomplicated; Z53.21 Procedure and treatment not carried out due to patient leaving prior to being seen by health care provider
CPT/HCPCS: 36415; 71046; 80053; 80306; 81000; 83605; 85007; 85025; 85027; 85610; 85730; 87040; 87077; 87088; 87186; 93005; 93306; 93312; 93320; 93325; 96361; 96365; 96367; 96368; 96375